=== PATIENT | female | born 1935 | race African-American/Black ===

== ENCOUNTER 2017-07-13 18:46 | Observation (INO) | payer OTHER ==
[2017-07-13 19:37] VITALS: BMI 30.8
--- NOTE | 2017-07-13 21:18 | PDOC ---
History of Present Illness - General History Source: Patient, Family - History of Present Illness Initial Comments: 07/13/17 21:21 The patient is a 82 year old female from [facility] and presenting with her family, with significant past medical history of hypertension, HLD, CAD , pulmonary hypertension, COPD, overactive bladder, diabetes, CVA (2008) and osteoarthritis who presents to the emergency department complaining of left LE DVT with calf pain. She notes that she had an ultrasound today after complaining of left calf pain which revealed the DVT and was prompted to come to the ED for further evaluation. Of note, the patient had left knee surgery on 06/23/2017. The patient denies chest pain, shortness of breath, headache, and dizziness. Denies fevers, chills, nausea, vomiting, diarrhea, and constipation. Denies dysuria, frequency, urgency, and hematuria. Allergies: Captopril, Nifedipine, Igorsci-Ssp-Ndk Reductase Inhibitor Past surgical history: Left Knee. Social history: No reported cigarette, alcohol, or drug use. <Ty Hendrix - Last Filed: 07/13/17 22:35> <Juventino Fischer - Last Filed: 07/14/17 00:37> <Cony Steinberg - Last Filed: 07/14/17 01:14> - General Chief Complaint: Pain, Acute Stated Complaint: DVT Time Seen by Provider: 07/13/17 19:34 Past History <Ty Hendrix - Last Filed: 07/13/17 22:35> <Juventino Fischer - Last Filed: 07/14/17 00:37> - Past Medical History Anemia: No Asthma: Yes Cancer: No Cardiac Disorders: Yes (STATES "HOLE IN MY HEART"-FAST HEARTBEAT) CVA: Yes (2008-NO RESIDUAL EXCEPT OVERACTIVE BLADDER) COPD: No CHF: No DVT: No Dementia: No Diabetes: Yes (A1C IS 6) GI Disorders: No (OCCASIONAL REFLUX) Disorders: Yes (OVERACTIVE BLADDER-OCCASIONAL URINARY INCONTINENCE) HTN: Yes Hypercholesterolemia: Yes Liver Disease: No Seizures: No Thyroid Disease: No - Surgical History Abdominal Surgery: No Appendectomy: No Cardiac Surgery: No Cholecystectomy: No Lung Surgery: No Neurologic Surgery: No Orthopedic Surgery: Yes (ARTHROSCOPY R KNEE) - Immunization History Immunization Up to Date: No - Suicide/Smoking/Psychosocial Hx Smoking History: Never smoked Have you smoked in the past 12 months: No Information on smoking cessation initiated: No Hx Alcohol Use: No Drug/Substance Use Hx: No Substance Use Type: None Hx Substance Use Treatment: No <Cony Steinberg - Last Filed: 07/14/17 01:14> - Past Medical History Allergies/Adverse Reactions: Allergies Allergy/AdvReac Type Severity Reaction Status Date / Time captopril Allergy Severe UNSURE Verified 07/13/17 19:37 nifedipine Allergy Severe Swelling Verified 07/13/17 19:37 Juopgbs-Ncf-Ozx Reductase Allergy Severe leg pain Verified 07/13/17 19:37 Inhibitor Home Medications: Ambulatory Orders Albuterol Sulfate [Proventil HFA Inhaler -] 1 - 2 inh PO QID PRN 05/18/17 Ascorbic Acid [Vitamin C] 500 mg PO DAILY 05/18/17 Brimonidine Tartrate/Timolol [Combigan 0.2%-0.5% Eye Drops] 5 ml OU HS 05/18/17 Budesonide/Formeterol Fumarate [SYMBICORT 80/4.5mcg -] 1 inh PO BID PRN Cholecalciferol (Vitamin D3) [Vitamin D3] 2,000 unit PO DAILY 05/18/17 Ezetimibe [Zetia] 10 mg PO DAILY 05/18/17 Fish Oil/Borage/Flax/Om3,6,9 1 [[place] 3-6-9 1,200 mg Softgel] 1,200 mg PO DAILY 05/18/17 Hydralazine HCl 100 mg PO TID 05/18/17 Hydrochlorothiazide [Hctz -] 12.5 mg PO DAILY 05/18/17 Losartan Potassium 100 mg PO DAILY 05/18/17 Metformin HCl [Metformin HCl ER] 500 mg PO DAILY 05/18/17 Oxybutynin [Oxytrol For Women] 1 each TD ASDIR MDD APPLIES EVERY 4 DAYS Acetaminophen [Tylenol .Regular Strength -] 650 mg PO Q6H tablet 06/25/17 Aspirin [ASA -] 81 mg PO BID #30 tab.chew 06/25/17 Magnesium Hydrox 2400MG/30Ml [Milk of Magnesia -] 30 ml PO PRN PRN cup Pantoprazole Sodium [Protonix -] 40 mg PO DAILY tablet.ec 06/25/17 Sennosides/Docusate Sodium [Pericolace -] 2 tablet PO BID tablet 06/25/17 oxyCODONE HCL [Roxicodone -] 5 mg PO Q6H PRN tablet MDD 4 06/25/17 traMADol HCL [Ultram -] 50 mg PO Q6H PRN tablet MDD 4 06/25/17 Review of Systems - Review of Systems Able to Perform ROS?: Yes Comments:: 07/13/17 21:21 CONSTITUTIONAL: Absent: fever, chills, diaphoresis, generalized weakness, malaise, loss of appetite HEENT: Absent: rhinorrhea, nasal congestion, throat pain, throat swelling, difficulty swallowing, mouth swelling, ear pain, eye pain, visual Changes CARDIOVASCULAR: Absent: chest pain, syncope, palpitations, irregular heart rate, lightheadedness , peripheral edema RESPIRATORY: Absent: cough, shortness of breath, dyspnea with exertion, orthopnea, wheezing, stridor, hemoptysis GASTROINTESTINAL: Absent: abdominal pain, abdominal distension, nausea, vomiting, diarrhea, constipation, melena, hematochezia GENITOURINARY: Absent: dysuria, frequency, urgency, hesitancy, hematuria, flank pain, genital pain MUSCULOSKELETAL: Absent: myalgia, arthralgia, joint swelling EXTREMITIES: +Left calf pain. SKIN: Absent: rash, itching, pallor HEMATOLOGIC/IMMUNOLOGIC: Absent: easy bleeding, easy bruising, lymphadenopathy, frequent infections ENDOCRINE: Absent: unexplained weight gain, unexplained weight loss, heat intolerance, cold intolerance NEUROLOGIC: Absent: headache, focal weakness or paresthesias, dizziness, unsteady gait, seizure, mental status changes, bladder or bowel incontinence PSYCHIATRIC: Absent: anxiety, depression, suicidal or homicidal ideation, hallucinations. <Ty Hendrix - Last Filed: 07/13/17 22:35> *Physical Exam - Vital Signs Last Vital Signs Temp Pulse Resp BP Pulse Ox 98.7 F 53 L 18 141/53 98 07/13/17 19:31 07/13/17 19:31 07/13/17 19:31 07/13/17 19:31 07/13/17 19:31 - Physical Exam Comments: 07/13/17 22:35 GENERAL: Well developed, well nourished. Awake and alert. No acute distress. HEENT: Normocephalic, atraumatic. PERRLA, EOMI. No conjunctival pallor. Sclera are non- icteric. Moist mucous membranes. Oropharynx is clear. NECK: Supple. Full ROM. No JVD. Carotid pulses 2+ and symmetric, without bruits. No thyromegaly. No lymphadenopathy. CARDIOVASCULAR: Regular rate and rhythm. No murmurs, rubs, or gallops. Distal pulses are 2+ and symmetric. PULMONARY: No evidence of respiratory distress. Lungs clear to auscultation bilaterally. No wheezing, rales or rhonchi. ABDOMINAL: Soft. Non-tender. Non-distended. No rebound or guarding. No organomegaly. Normoactive bowel sounds. MUSCULOSKELETAL Normal range of motion at all joints. No bony deformities or tenderness. No CVA tenderness. EXTREMITIES: +Swollen Left Calf. +Healing surgical incision on left knee with steristrips still attached. +No purulence or erythema. No cyanosis. No clubbing. SKIN: Warm and dry. Normal capillary refill. No rashes. No jaundice. NEUROLOGICAL: Alert, awake, appropriate. Cranial nerves 2-12 intact. No deficits to light touch and temperature in face, upper extremities and lower extremities. No motor deficits in the in face, upper extremities and lower extremities. Normoreflexic in the upper and lower extremities. Normal speech. Toes are down- going bilaterally. PSYCHIATRIC: Cooperative. Good eye contact. Appropriate mood and affect. <Ty Hendrix - Last Filed: 07/13/17 22:35> - Vital Signs Last Vital Signs Temp Pulse Resp BP Pulse Ox 98.7 F 53 L 18 141/53 98 07/13/17 19:31 07/13/17 19:31 07/13/17 19:31 07/13/17 19:31 07/13/17 19:31 <Juventino Fischer - Last Filed: 07/14/17 00:37> - Vital Signs Last Vital Signs Temp Pulse Resp BP Pulse Ox 98.7 F 53 L 18 141/53 98 07/13/17 19:31 07/13/17 19:31 07/13/17 19:31 07/13/17 19:31 07/13/17 19:31 <Cony Steinberg - Last Filed: 07/14/17 01:14> ED Treatment Course - LABORATORY CBC & Chemistry Diagram: 07/13/17 21:10 07/13/17 21:10 <Ty Hendrix - Last Filed: 07/13/17 22:35> - LABORATORY CBC & Chemistry Diagram: 07/13/17 21:10 07/13/17 21:10 - ADDITIONAL ORDERS Additional order review: Laboratory Results 07/13/17 07/13/17 21:10 21:10 PT with INR 11.00 INR 0.97 Sodium 141 Potassium 4.0 Chloride 106 Carbon Dioxide 30 Anion Gap 5 L BUN 17 Creatinine 0.7 Creat Clearance w eGFR > 60 Random Glucose 134 H Calcium 8.6 Total Bilirubin 0.4 AST 19 ALT 17 Alkaline Phosphatase 113 Total Protein 6.7 Albumin 3.2 L 07/13/17 21:10 RBC 4.00 MCV 80.7 MCHC 32.8 RDW 16.7 H MPV 8.0 Neutrophils % 51.8 Lymphocytes % 29.0 Monocytes % 14.0 H Eosinophils % 3.9 Basophils % 1.3 <Juventino Fischer - Last Filed: 07/14/17 00:37> - LABORATORY CBC & Chemistry Diagram: 07/13/17 21:10 07/13/17 21:10 - RADIOLOGY Radiology Studies Ordered: Category Date Time Status DUPLEX VASCUL US-1 LEG [US] Stat Ultrasound 07/13/17 20:48 Ordered <Cony Steinberg - Last Filed: 07/14/17 01:14> Medical Decision Making - Medical Decision Making 07/13/17 23:59 Dr. Michael Swartz was called regarding the patient at 11:20pm and at 12:37am [phone] Dr. Michael Swartz was called regarding the patient at 11:56pm and a message was left for the doctor. [phone] <Juventino Fischer - Last Filed: 07/14/17 00:37> *DC/Admit/Observation/Transfer - Attestations Scribe Attestion: 07/13/17 22:36 Documentation prepared by Ty Hendrix, acting as ophthalmic medical technician for Cony Steinberg MD. <Ty Hendrix - Last Filed: 07/13/17 22:35> <Juventino Fischer - Last Filed: 07/14/17 00:37> - Discharge Dispostion Admit: Yes <Cony Steinberg - Last Filed: 07/14/17 01:14> Diagnosis at time of Disposition: Swelling of left lower extremity - Discharge Dispostion Condition at time of disposition: Fair - Referrals Referrals: ON STAFF,NOT [Primary Care Provider] - - Patient Instructions - Post Discharge Activity
[2017-07-13 21:28] LABS: BASO % 1.3 % (0-2.0); EOS % 3.9 % (0-4.5); HEMATOCRIT 32.3 % (32.4-45.2); HEMOGLOBIN 10.6 GM/dL (10.7-15.3); MCH 26.4 pg (25.7-33.7); MCHC 32.8 g/dl (32.0-36.0); MEAN CELL VOLUME 80.7 fl (80-96); NEUT % 51.8 % (42.8-82.8); PLATELET COUNT 526 K/MM3 (134-434); RDW 16.7 % (11.6-15.6); WHITE BLOOD COUNT 5.4 K/mm3 (4.0-10.0)
[2017-07-13 21:45] LABS: INR 0.97 (0.82-1.09)
[2017-07-13 22:06] LABS: ALBUMIN 3.2 g/dl (3.4-5.0); ANION GAP 5 (8-16); BLOOD UREA NITROGEN 17 mg/dL (7-18); CALCIUM 8.6 mg/dL (8.5-10.1); CHLORIDE 106 mmol/L (98-107); CO2 30 mmol/L (21-32); CREATININE 0.7 mg/dL (0.55-1.02); GLUCOSE,RANDOM 134 mg/dL (74-106); SGOT/AST 19 U/L (15-37); SGPT/ALT 17 U/L (12-78); SODIUM 141 mmol/L (136-145)
[2017-07-13 22:08] LABS: ALK PHOS 113 U/L (45-117); BILIRUBIN,TOTAL 0.4 mg/dL (0.2-1.0); TOT PROT 6.7 g/dl (6.4-8.2)
[2017-07-14] MEDS ORDERED: ENOXAPARIN NA (PORCINE) 80 MG/0.8 ML DISP.SYRIN SQ ONE ×2 (02:45→02:49)
[2017-07-14] MEDS ORDERED: ENOXAPARIN NA (PORCINE) 80 MG/0.8 ML DISP.SYRIN SQ SCH (02:45)
[2017-07-14] MEDS ORDERED: BUDESONIDE/FORMETEROL FUMARATE 80/4.5 mcg INHALER IH PRN (09:10)
--- NOTE | 2017-07-14 09:12 | HP ---
CHIEF COMPLAINT: PCP: HISTORY OF PRESENT ILLNESS: 82 year-old woman with a PMH significant for HTN, CAD, CVA (2008), pulmonary HTN , NIDDM, COPD, OA, and s/p left total knee replacement on 06/23/17 ([facility] Diop). Discharged to rehab on 06/25/17. Patient presented last night to the ED with a complaint of left lower extremity calf pain. Patient reportedly had an ultrasound done earlier in the day which revealed a DVT. Patient was sent by the rehab facility to the ED for further workup. Ultrasound here did not reveal DVT but did show a 5.0 x 4.2 x 3.7cm hypoechoic structure v. lesion in the left popliteal fossa with central flow. AVM with surrounding hematoma not excluded. Triple phase CT ordered. Recent Travel: No PAST MEDICAL HISTORY: Hypertension Coronary artery disease CVA Pulmonary hypertension NIDDM COPD Osteoarthritis PAST SURGICAL HISTORY: Left total knee replacement Social History: Smoking: no Alcohol: no Drugs: no Family History: Allergies captopril Allergy (Severe, Verified 07/13/17 19:37) UNSURE nifedipine Allergy (Severe, Verified 07/13/17 19:37) Swelling Njpkbwg-Jrs-Mbu Reductase Inhibitor Allergy (Severe, Verified 07/13/17 19:37) leg pain HOME MEDICATIONS: Home Medications Medication Instructions Recorded Albuterol Sulfate [Proventil HFA 1 - 2 inh PO QID PRN 05/18/17 Inhaler -] Ascorbic Acid [Vitamin C] 500 mg PO DAILY 05/18/17 Brimonidine Tartrate/Timolol 5 ml OU HS 05/18/17 [Combigan 0.2%-0.5% Eye Drops] Budesonide/Formeterol Fumarate 1 inh PO BID PRN 05/18/17 [SYMBICORT 80/4.5mcg -] Cholecalciferol (Vitamin D3) 2,000 unit PO DAILY 05/18/17 [Vitamin D3] Ezetimibe [Zetia] 10 mg PO DAILY 05/18/17 Fish Oil/Borage/Flax/Om3,6,9 1 1,200 mg PO DAILY 05/18/17 [[place] 3-6-9 1,200 mg Softgel] Hydralazine HCl 100 mg PO TID 05/18/17 Hydrochlorothiazide [Hctz -] 12.5 mg PO DAILY 05/18/17 Losartan Potassium 100 mg PO DAILY 05/18/17 Metformin HCl [Metformin HCl ER] 500 mg PO DAILY 05/18/17 Oxybutynin [Oxytrol For Women] 1 each TD ASDIR MDD APPLIES EVERY 05/18/17 4 DAYS Acetaminophen [Tylenol .Regular 650 mg PO Q6H tablet 06/25/17 Strength -] Aspirin [ASA -] 81 mg PO BID #30 tab.chew 06/25/17 Magnesium Hydrox 2400MG/30Ml [Milk 30 ml PO PRN PRN cup 06/25/17 of Magnesia -] Pantoprazole Sodium [Protonix -] 40 mg PO DAILY tablet.ec 06/25/17 Sennosides/Docusate Sodium 2 tablet PO BID tablet 06/25/17 [Pericolace -] oxyCODONE HCL [Roxicodone -] 5 mg PO Q6H PRN tablet MDD 4 06/25/17 traMADol HCL [Ultram -] 50 mg PO Q6H PRN tablet MDD 4 06/25/17 REVIEW OF SYSTEMS CONSTITUTIONAL: Absent: fever, chills, diaphoresis, generalized weakness, malaise, loss of appetite, weight change HEENT: Absent: rhinorrhea, nasal congestion, throat pain, throat swelling, difficulty swallowing, mouth swelling, ear pain, eye pain, visual changes CARDIOVASCULAR: Absent: chest pain, syncope, palpitations, irregular heart rate, lightheadedness , peripheral edema RESPIRATORY: Absent: cough, shortness of breath, dyspnea with exertion, orthopnea, wheezing, stridor, hemoptysis GASTROINTESTINAL: Absent: abdominal pain, abdominal distension, nausea, vomiting, diarrhea, constipation, melena, hematochezia GENITOURINARY: Absent: dysuria, frequency, urgency, hesitancy, hematuria, flank pain, genital pain MUSCULOSKELETAL: Absent: myalgia, arthralgia, joint swelling, back pain, neck pain SKIN: Absent: rash, itching, pallor HEMATOLOGIC/IMMUNOLOGIC: Absent: easy bleeding, easy bruising, lymphadenopathy, frequent infections ENDOCRINE: Absent: unexplained weight gain, unexplained weight loss, heat intolerance, cold intolerance NEUROLOGIC: Absent: headache, focal weakness or paresthesias, dizziness, unsteady gait, seizure, mental status changes, bladder or bowel incontinence PSYCHIATRIC: Absent: anxiety, depression, suicidal or homicidal ideation, hallucinations. PHYSICAL EXAMINATION Vital Signs - 24 hr 07/13/17 07/14/17 07/14/17 19:31 06:14 06:54 Temperature 98.7 F 97.7 F 98.2 F Pulse Rate 53 L Pulse Rate [ 65 83 Left Apical] Respiratory 18 18 18 Rate Blood Pressure 141/53 Blood Pressure 134/79 132/75 [Right Arm] O2 Sat by Pulse 98 98 98 Oximetry (%) 07/14/17 07:20 Temperature 97.9 F Pulse Rate Pulse Rate [ 67 Left Apical] Respiratory 18 Rate Blood Pressure Blood Pressure 164/77 [Right Arm] O2 Sat by Pulse 95 Oximetry (%) GENERAL: Awake, alert, and fully oriented, in no acute distress. HEAD: Normal with no signs of trauma. EYES: Pupils equal, round and reactive to light, extraocular movements intact, sclera anicteric, conjunctiva clear. No lid lag. EARS, NOSE, THROAT: Ears normal, nares patent, oropharynx clear without exudates. Moist mucous membranes. NECK: Normal range of motion, supple without lymphadenopathy, JVD, or masses. LUNGS: Breath sounds equal, clear to auscultation bilaterally. No wheezes, and no crackles. No accessory muscle use. HEART: Regular rate and rhythm, normal S1 and S2 without murmur, rub or gallop. ABDOMEN: Soft, nontender, not distended, normoactive bowel sounds, no guarding, no rebound, no masses. No hepatomegaly or splenomegaly. MUSCULOSKELETAL: Normal range of motion at all joints. No bony deformities or tenderness. No CVA tenderness. UPPER EXTREMITIES: 2+ pulses, warm, well-perfused. No cyanosis. No clubbing. No peripheral edema. LOWER EXTREMITIES: 2+ pulses, warm, well-perfused. No calf tenderness. No peripheral edema. NEUROLOGICAL: Cranial nerves II-XII intact. Normal speech. Normal gait. PSYCHIATRIC: Cooperative. Good eye contact. Appropriate mood and affect. SKIN: Warm, dry, normal turgor, no rashes or lesions noted, normal capillary refill. Laboratory Results - last 24 hr 07/13/17 07/13/17 07/13/17 21:10 21:10 21:10 WBC 5.4 RBC 4.00 Hgb 10.6 L Hct 32.3 L MCV 80.7 MCH 26.4 MCHC 32.8 RDW 16.7 H Plt Count 526 H MPV 8.0 Neutrophils % 51.8 Lymphocytes % 29.0 Monocytes % 14.0 H Eosinophils % 3.9 Basophils % 1.3 PT with INR 11.00 INR 0.97 Sodium 141 Potassium 4.0 Chloride 106 Carbon Dioxide 30 Anion Gap 5 L BUN 17 Creatinine 0.7 Creat Clearance w eGFR > 60 Random Glucose 134 H Calcium 8.6 Total Bilirubin 0.4 AST 19 ALT 17 Alkaline Phosphatase 113 Total Protein 6.7 Albumin 3.2 L ASSESSMENT/PLAN 82 year-old woman with a PMH significant for HTN, CAD, CVA (2008), pulmonary HTN , NIDDM, COPD, OA, and s/p left total knee replacement on 06/23/17 (Maxime Diop). Placed on observation for a lesion in left popliteal fossa. Lesion left popliteal fossa s/p left TKR --triple phase CTA done, pending dictation Hospitalist Screening - Colonoscopy Questionnaire Colonoscopy Questionnaire: Colonoscopy Questionnaire
[2017-07-14] MEDS ORDERED: HYDROCHLOROTHIAZIDE 12.5 MG CAPSULE (FP) PO SCH (10:00)
[2017-07-14] MEDS ORDERED: SENNOSIDES/DOCUSATE COMBO (SENNA PLUS) TABLET (UD) PO SCH (10:00)
[2017-07-14] MEDS ORDERED: PANTOPRAZOLE 40 MG TABLET (FP) PO SCH (10:00)
[2017-07-14] MEDS ORDERED: LOSARTAN POTASSIUM 50 MG TABLET (FP) PO SCH (10:00)
[2017-07-14] MEDS ORDERED: EZETIMIBE 10 MG TABLET (FP) PO SCH (10:00)
--- NOTE | 2017-07-14 10:24 | EKG ---
Test Reason : Blood Pressure : / mmHG Vent. Rate : 054 BPM Atrial Rate : 053 BPM P-R Int : 000 ms QRS Dur : 158 ms QT Int : 440 ms P-R-T Axes : 000 017 -05 degrees QTc Int : 417 ms JUNCTIONAL BRADYCARDIA retrograde p waves LEFT VENTRICULAR HYPERTROPHY WITH QRS WIDENING ABNORMAL ECG NO PREVIOUS ECGS AVAILABLE Confirmed by DESTINY GREENBERG, MILAGROS ([id number]) on 07/14/2017 10:24:31 AM Referred By: Confirmed By:MILAGROS DIXON MD
[2017-07-14] MEDS ORDERED: BACITRACIN 0.9 GM PACKET ONE (12:23)
--- NOTE | 2017-07-14 13:21 | PDOC ---
*Physical Exam - Vital Signs Last Vital Signs Temp Pulse Resp BP Pulse Ox 97.9 F 61 18 178/80 96 07/14/17 07:20 07/14/17 10:00 07/14/17 10:00 07/14/17 10:00 07/14/17 10:00 - Physical Exam Comments: 07/14/17 13:18 pt endorsed to me by dr. dalton. p is an 82 y/o female s/p left knee arthroplasty 20 days prior who presented with left leg pain. pt received all the [place] for suspected DVT prior to obtaining of left lower extremity Doppler ultrasound which showed a 5 x 4 x 3.7 hypoechoic structure with central flow by Doppler. Patient was placed in ED of rubs and a CTA was ordered this morning by me on reevaluation. I discussed the case with Dr. Lezama of interventional radiology who advises me the patient has a 5 cm arterial pseudoaneurysm and Dr. Lopez vascular surgery advises transfer to [facility] due to absence of on-call vascular coverage at this time. ED Treatment Course - LABORATORY CBC & Chemistry Diagram: 07/13/17 21:10 07/13/17 21:10 - ADDITIONAL ORDERS Additional order review: 07/13/17 21:10 RBC 4.00 MCV 80.7 MCHC 32.8 RDW 16.7 H MPV 8.0 Neutrophils % 51.8 Lymphocytes % 29.0 Monocytes % 14.0 H Eosinophils % 3.9 Basophils % 1.3 *DC/Admit/Observation/Transfer Diagnosis at time of Disposition: Swelling of left lower extremity, Pseudoaneurysm - Discharge Dispostion Disposition: TRANSFER ACUTE CARE/OTHER HOSP Condition at time of disposition: Fair - Referrals - Patient Instructions - Post Discharge Activity - Transfer to Acute Care Facility Receiving Facility: [facility] Accepting Physician:: dr. childs Transfer comment: 07/14/17 14:05 consent obtained
[2017-07-14] MEDS ORDERED: hydrALAZINE HCL 50 MG TABLET (FP) PO SCH (14:00)
[2017-07-14 14:20] VITALS: BP 170/78; PULSE 65; TEMP 98.6
[2017-07-14] MEDS ORDERED: TIMOLOL 0.5% OPHTHALMIC SOL 5 ML BOTTLE OU SCH (22:00)
[2017-07-14] MEDS ORDERED: BRIMONIDINE TARTRATE 0.2% OPHTHALMIC 5 ML BOTTLE OU SCH (22:00)
== END 2017-07-14 14:15 | disposition short-term general hospital (02) ==
LOC: SUPCPDRO 18:46 → JER 18:46 → JERBED 07-14 01:14
PROVIDERS: ADMIT Internal Medicine; ATTEND Nurse Practitioner Acute Care
PROC: 3E013GC Introduction of Other Therapeutic Substance into Subcutaneous Tissue, Percutaneous Approach (ICD-10-PCS; principal; 2017-07-14)
DX: I72.9 Aneurysm of unspecified site (principal); M79.89 Other specified soft tissue disorders; I10 Essential (primary) hypertension; I25.10 Atherosclerotic heart disease of native coronary artery without angina pectoris; E78.5 Hyperlipidemia, unspecified; I27.20 Pulmonary hypertension, unspecified; J44.9 Chronic obstructive pulmonary disease, unspecified; N32.81 Overactive bladder; E11.9 Type 2 diabetes mellitus without complications; Z86.73 Personal history of transient ischemic attack (TIA), and cerebral infarction without residual deficits; M19.90 Unspecified osteoarthritis, unspecified site; Z88.8 Allergy status to other drugs, medicaments and biological substances; Z79.82 Long term (current) use of aspirin; Z79.84 Long term (current) use of oral hypoglycemic drugs
CPT/HCPCS: 36415; 75635-TC; 80053; 85025; 85610; 93005; 93010; 93971-TC; 96372; 99285-25; G0378